=== PATIENT | male | born 1970 | race Caucasian/White ===

== ENCOUNTER → 2021-11-04 | Outpatient (CLI) | payer BC | LOC: M SLEEP 20:00 | PROVIDERS: ATTEND Physician Assistant | DX: R40.0 Somnolence (principal) ==

== ENCOUNTER → 2022-03-18 | Outpatient (CLI) | payer BC | LOC: M RAD 12:10 | PROVIDERS: ATTEND Family Medicine | DX: M48.061 Spinal stenosis, lumbar region without neurogenic claudication (principal); M54.42 Lumbago with sciatica, left side; R53.1 Weakness ==

== ENCOUNTER → 2022-08-24 | Outpatient (CLI) | payer BC ==
[~2022-08-24] MED LIST: AMLO10TA PO; IBUP200C25 PO; VALS1TAB67 PO
== END ==
LOC: M LABSMTC 09:08
PROVIDERS: ATTEND Anesthesiology
DX: Z01.812 Encounter for preprocedural laboratory examination (principal); Z11.52 Encounter for screening for COVID-19

== ENCOUNTER 2022-08-27 07:38 | Day surgery (SDC) | payer BC ==
[~2022-08-27] VITALS: Ht 185.4 cm; Wt 90.7 kg
[~2022-08-27 07:38] MED LIST changes: +NS 1,000 ML IV ONE
[2022-08-27] MEDS ORDERED: propofoL 200 MG/20 ML VIAL As Ordered ONE (08:17)
[2022-08-27] MEDS ORDERED: LIDOCAINE 2% 100MG/5ML SDV (FOR ANES.) As Ordered ONE (08:17)
[2022-08-27 09:55] VITALS: BP 131/72
== END 2022-08-27 10:06 | disposition home or self-care (01) ==
LOC: M OPP 07:38
PROVIDERS: ATTEND Internal Medicine Gastroenterology
DX: Z12.11 Encounter for screening for malignant neoplasm of colon (principal); D12.4 Benign neoplasm of descending colon; K57.30 Diverticulosis of large intestine without perforation or abscess without bleeding; K64.4 Residual hemorrhoidal skin tags; K64.8 Other hemorrhoids; Z79.01 Long term (current) use of anticoagulants; Z79.1 Long term (current) use of non-steroidal anti-inflammatories (NSAID); Z79.899 Other long term (current) drug therapy; I10 Essential (primary) hypertension

== ENCOUNTER → 2024-02-23 | Outpatient (CLI) | payer BC ==
[~2024-02-23] MED LIST changes: -NS 1,000 ML IV ONE
== END ==
LOC: M RAD 07:08
PROVIDERS: ATTEND Psychiatry & Neurology Neurology
DX: N39.42 Incontinence without sensory awareness (principal); M50.30 Other cervical disc degeneration, unspecified cervical region

== ENCOUNTER → 2025-04-05 | Outpatient (CLI) | payer BC ==
[~2025-04-05] MED LIST changes: +AMLO-751 PO; -AMLO10TA PO
== END ==
LOC: M WUC 08:47
PROVIDERS: ATTEND Nurse Practitioner Family
DX: S22.32XA Fracture of one rib, left side, initial encounter for closed fracture (principal)